=== PATIENT | female | born 2000 | race Caucasian/White ===

== ENCOUNTER 2022-01-07 08:07 | Emergency (ER) | payer OTHER, SELFPAY ==
[2022-01-07 08:08] VITALS: BP 104/50; PULSE 115; RESP 16; TEMP 36.9; O2SAT 97; BMI 22.8
--- NOTE | 2022-01-07 08:17 | CT_ITS ---
PROCEDURE INFORMATION: Exam: CT Abdomen And Pelvis With Contrast Exam date and time: 01/07/2022 9:05 AM Age: 21 years old Clinical indication: Abdominal pain; Patient HX: Left flank pain, nausea; Additional info: Prior L perinephric abscess, dysuria, back pain TECHNIQUE: Imaging protocol: Computed tomography of the abdomen and pelvis with contrast. Radiation optimization: All CT scans at this facility use at least one of these dose optimization techniques: automated exposure control; mA and/or kV adjustment per patient size (includes targeted exams where dose is matched to clinical indication); or iterative reconstruction. Contrast material: ISOVUE; Contrast volume: 75 ml; Contrast route: IV; COMPARISON: No relevant prior studies available. FINDINGS: Liver: Mild focal fatty infiltration of the liver along the falciform ligament. Gallbladder and bile ducts: Normal. No calcified stones. No ductal dilation. Pancreas: Normal. No ductal dilation. Spleen: Normal. No splenomegaly. Adrenal glands: Normal. No mass. Kidneys and ureters: There are foci of mild ill marginated hypoattenuation in the left mid and upper renal pole laterally with some overlying cortical thinning/scarring. Findings are favored to be chronic and may be the sequela of prior pyelonephritis or infarcts, but correlate with urinalysis. No hydronephrosis. Stomach and bowel: Moderate colonic wall thickening throughout. Findings are likely at least accentuated by nondistention, but are somewhat more prominent than are typically seen. Colitis could be considered, but there is no evidence of acute inflammatory fat stranding. Appendix: No evidence of appendicitis. Intraperitoneal space: Trace nonspecific free pelvic fluid. Vasculature: Unremarkable. No abdominal aortic aneurysm. Lymph nodes: Unremarkable. No enlarged lymph nodes. Urinary bladder: Unremarkable as visualized. Reproductive: 1.4 cm left adnexal cyst/follicle, presumably physiologic. Bones/joints: No acute fracture. Soft tissues: Unremarkable. IMPRESSION: 1. There are foci of mild ill marginated hypoattenuation in the left mid and upper renal pole laterally with some overlying cortical thinning/scarring. Findings are favored to be chronic and may be the sequela of prior pyelonephritis (favored) or infarcts, but correlate with urinalysis. No hydronephrosis. 2. Moderate colonic wall thickening throughout. Findings are likely at least accentuated by nondistention, but are somewhat more prominent than are typically seen. Colitis could be considered, but there is no evidence of acute inflammatory fat stranding. 3. 1.4 cm left adnexal cyst/follicle and trace free pelvic fluid, which are most often considered physiologic in this age group.
--- NOTE | 2022-01-07 08:19 | [facility].EDGENADL ---
ED Disposition Clinical Impression: Abdominal pain, Vomiting Disposition: Home, Self-Care Condition on Discharge: Fair Additional Instructions: At this time was felt you are safe to be discharged home. If new or worsening symptoms please do not hesitate to return to the emergency department. Please take your medication as prescribed. Please call and schedule an appointment with a family care provider to establish care within 3 to 5 days. Prescriptions: Ondansetron [Zofran 4mg ODT] 4 mg PO Q6H PRN 3 Days #12 tab PRN Reason: Vomiting Transmission Status: Pending to [facility] Referrals: Provider,Referral, [Primary Care Provider] - - Critical Care Critical Care Time: No Attestation: On 01/07/22, the high probability of a clinically significant, sudden or life threatening deterioration of the following system(s) required my full and direct attention, intervention and personal management. The time I documented below is in addition to time spent performing reported procedures but includes the following listed in this critical care notation. Medical Decision Making - Eric Inquiry Pt receiving controlled substance: No Vital Signs: 01/07/22 08:08 01/07/22 09:16 01/07/22 09:30 Temperature 98.5 F Temperature Source Oral Pulse Rate 92 H 99 H Pulse Rate [Right Radial] 115 H Respiratory Rate 16 Blood Pressure 119/83 Blood Pressure [Right Arm] 104/50 L Blood Pressure Mean 90 Blood Pressure Mean [Right Arm] 68 Blood Pressure Source [Right Arm] Automatic Cuff Blood Pressure Position [Right Arm] Sitting 02 Sat by Pulse Oximetry 97 98 99 Oxygen Delivery Method Room Air Room Air - Lab Data Lab Results 01/07/22 08:05: WBC 13.6 H, RBC 4.53, Hgb 13.5, Hct 41.7, MCV 91.9, MCH 29.9, MCHC 32.5, RDW 13.4, Plt Count 280, MPV 7.4, Neut % (Auto) 88.2 H, Lymph % (Auto) 6.1 L, [place] % (Auto) 4.9, Eos % (Auto) 0.4, Baso % (Auto) 0.4, Neut # (Auto) 12.0 H, Lymph # (Auto) 0.8, [place] # (Auto) 0.7, Eos # (Auto) 0.1, Baso # (Auto) 0.1, Total Counted 100, Neutrophils % (Manual) 85 H, Lymphocytes % (Manual) 6 L, Monocytes % (Manual) 9, Platelet Estimate Normal, RBC Morphology Normal 01/07/22 08:05: Sodium 134 L, Potassium 3.7, Chloride 104, Carbon Dioxide 23, Anion Gap 10.7, BUN 8, Creatinine 0.70, Estimated Creat Clear 114, Estimated GFR 106, Est GFR ( Amer) 128, Glucose 143 H, Calcium 9.2, Total Bilirubin 0.7, AST 27, ALT 18, Alkaline Phosphatase 87, Total Protein 7.1, Albumin 4.3, Globulin 2.8, Albumin/Globulin Ratio 1.5, Lipase 81 01/07/22 08:05: Lactate 0.7 01/07/22 08:20: Urine Color Yellow, Urine Appearance Sl cloudy, Urine pH 6.0, Ur Specific [place] 1.025, Urine Protein 1+, Urine Glucose (UA) Negative, Urine Ketones 1+, Urine Blood 1+, Urine Nitrate Negative, Urine Bilirubin Negative, Urine Urobilinogen 0.2, Ur Leukocyte Esterase 1+ A, Urine RBC None, Urine WBC 3-5, Ur Squamous Epith Cells 3-5, Urine Bacteria Trace 01/07/22 08:20: Urine HCG, Qual Negative 01/07/22 08:50: SARS-CoV-2 (PCR) Not detected, Influenza A Untype (PCR) Not detected, Influenza Type B (PCR) Not detected Result diagrams: 01/07/22 08:05 01/07/22 08:05 Orders (Tests/Meds): ED MEDICATIONS Discontinued Medications Generic Name Dose Route Start Last Admin Trade Name Dora PRN Reason Stop Dose Admin Lactated Ringer's 1,000 mls @ 999 mls/hr 01/07/22 08:30 01/07/22 08:30 Lactated Ringer's 1000 Ml Bag IV 01/07/22 09:30 999 mls/hr .Q1H1M MIGEL Administration Iopamidol 75 ml 01/07/22 09:20 01/07/22 09:21 Iopamidol-370 (76%);100ml Bottle IV 01/07/22 09:21 75 ml ONCE ONE Administration Ketorolac Tromethamine 15 mg 01/07/22 09:05 01/07/22 09:16 Ketorolac 30mg/Ml Vial IV 01/07/22 09:06 15 mg ONCE ONE Administration Ondansetron HCl 4 mg 01/07/22 08:17 01/07/22 08:29 Ondansetron 4mg/2ml Vial IV 01/07/22 08:18 4 mg ONCE ONE Administration Sodium Chloride 10 ml 01/07/22 09:20 08
[2022-01-07 08:27] LABS: Microscopic, Urine URINE MICROSCOPIC (MICROSCOPIC)
[2022-01-07 08:29] LABS: Appearance,Urine SL CLOUDY (Clear); Bilirubin,Urine Negative (Negative); Blood, Urine 1+ (Negative); Color,Urine YELLOW (Yellow); Glucose,Urine (UA) Negative (Negative); Ketones,Urine 1+ (Negative); Leukocyte Esterase,Urine 1+ (Negative); Nitrate,Urine Negative (Negative); Protein,Urine 1+ (Negative); Specific Gravity, Urine 1.025 (1.005-1.030); Urobilinogen,Urine 0.2 EU/dl (0.2)
[2022-01-07 08:32] LABS: Urine Pregnancy, HCG Qual. Negative (Negative)
[2022-01-07 08:45] LABS: Bacteria,Urine Trace /lpf
[2022-01-07 08:48] LABS: Basophils # 0.1 K/mm3 (0-0.2); Basophils % 0.4 % (0.1-2.0); Eosinophils # 0.1 K/mm3 (0.0-0.4); Eosinophils % 0.4 % (0.1-12.0); Hematocrit 41.7 % (37.0-47.0); Hemoglobin 13.5 g/dL (12.2-16.2); Lymphocytes # 0.8 K/mm3 (0.7-4.5); Lymphocytes % 6.1 % (10-50); Mean Corpuscular HGB Conc 32.5 g/dL (31.8-35.4); Mean Corpuscular Hemoglobin 29.9 pg (27.0-31.2); Mean Corpuscular Volume 91.9 fl (81-99); Mean Platelet Volume 7.4 fl (7.4-10.4); Monocytes # 0.7 K/mm3 (0.1-1.0); Monocytes % 4.9 % (1.7-9.3); Neutrophils % 88.2 % (37.0-80.0); Platelet Count 280 K/mm3 (142-424); Red Blood Count 4.53 M/mm3 (4.20-5.40); Red Cell Distribution Width 13.4 % (11.5-17.5); White Blood Count 13.6 K/mm3 (4.8-10.8)
--- NOTE | 2022-01-07 08:51 | PC.NURSE ---
covid swab sent to lab
--- NOTE | 2022-01-07 08:52 | PC.NURSE ---
pt reports she is unable to void at this time; will ask again shortly. friend at BS
[2022-01-07 08:53] LABS: Coronavirus 19, PCR Not Detected (NotDetected); Influenza A, PCR Not Detected (NotDetected); Influenza B, PCR Not Detected (NotDetected)
[2022-01-07 08:55] LABS: MANUAL DIFFERENTIAL MANUAL DIFFERENTIAL (MANUAL DIFF)
[2022-01-07 08:57] LABS: Lactic Acid 0.7 mmol/L (0.7-2.1)
[2022-01-07 08:58] LABS: Chloride 104 mmol/L (98-107); Potassium 3.7 mmoL/L (3.5-5.1); Sodium 134 mmol/L (136-145)
[2022-01-07 09:00] LABS: Blood Urea Nitrogen 8 mg/dl (7-17); Creatinine Clearance Estimated 114 mL/min (50-200); Estimated Glomerular Filt Rate 106 ml/min (>60); GFR (African American) 128 ML/MIN (>60)
[2022-01-07 09:01] LABS: Alanine Aminotransferase 18 U/L (12-78); Albumin Level 4.3 g/dl (3.5-5.0); Albumin/Globulin Ratio 1.5 (1.1-1.8); Alkaline Phosphatase 87 U/L (38-126); Anion Gap 10.7 mEq/L (5-15); Aspartate Amino Transferase 27 U/L (14-36); Bilirubin,Total 0.7 mg/dl (0.2-1.3); Calcium 9.2 mg/dl (8.4-10.2); Carbon Dioxide 23 mmol/L (22.0-30.0); Globulin 2.8 g/dL (1.3-3.2); Glucose 143 mg/dl (74-100); Lipase 81 U/L (23-300); Total Protein,Serum 7.1 g/dl (6.3-8.2)
[2022-01-07 09:03] LABS: Lymphocytes % 6 % (10-50); Monocytes % 9 % (2-9); Neutrophils % 85 % (42-76); Platelet Estimate Normal; RBC Morphology Normal; Total Cells Counted 100
--- NOTE | 2022-01-07 09:08 | PC.NURSE ---
to ct per wheelchair
[2022-01-07 09:16] VITALS: PULSE 92; O2SAT 98
--- NOTE | 2022-01-07 09:17 | PC.NURSE ---
pt back from CT , pain meds given and ice chips
[2022-01-07 09:30] VITALS: BP 119/83; PULSE 99; O2SAT 99
--- NOTE | 2022-01-07 10:00 | PC.NURSE ---
Rounded on patient, pt lying on stretcher watching a show on her phone. She reports she does not need anything at this time but has requested to turn the light off. She is aware that we are waiting on scan result and once we get results in, the ER MD will come around and go over them. call light within reach.
[2022-01-07 10:15] VITALS: BP 119/77; PULSE 87; O2SAT 98
[2022-01-07 10:30] VITALS: BP 124/72; PULSE 82; O2SAT 99
[2022-01-07 11:10] VITALS: BP 105/61; PULSE 79; RESP 20; TEMP 37.1; O2SAT 99
== END 2022-01-07 11:10 | disposition home or self-care (01) ==
PROVIDERS: Emergency Provider Emergency Medicine
DX: R10.9 Unspecified abdominal pain (principal); R11.10 Vomiting, unspecified
CPT/HCPCS: 74177; 80053; 81001; 81025; 83605; 83690; 85007; 85025; 87040; 87086; 87088; 87186; 96365; 96375; 99284; C9803; J2405; Q9967; U0003; U0005